=== PATIENT | female | born 1955 | race Two or more races ===

== ENCOUNTER 2023-12-21 05:20 | Day surgery (SDC) | payer OTHER ==
[~2023-12-21 05:20] MED LIST: AMLODIPINE-OLM1 EAC3; GLUMETZA1000 MG; JARDIANCE25 MG; LOSARTAN POTASS50 MG; MONTELUKAST SOD10 MG; SYNTHROID100 MCG
[2023-12-21] MEDS ORDERED: CEFAZOLIN SODIUM 1,000 MG VIAL ONE (06:37)
[2023-12-21] MEDS ORDERED: LIDOCAINE HCL 1%/EPINEPHRINE 20ML VIAL IJ ONE ×2 (07:24→08:23)
[2023-12-21] MEDS ORDERED: POVIDONE-IODINE 118 ML BOTT TOP ONE (07:24)
[2023-12-21] MEDS ORDERED: BUPIVACAINE HCL/MPF 0.5% 30ML VIAL ONE (07:24)
[2023-12-21] MEDS ORDERED: BUPIVACAINE HCL/Mpf 0.5% 10ML VIAL ONE (08:22)
[2023-12-21] MEDS ORDERED: CEFAZOLIN SODIUM 1,000 MG VIAL IV ONE (08:30)
== END 2023-12-21 10:55 | disposition home or self-care (01) ==
LOC: CIR.AMB 05:20
PROVIDERS: ATTEND Colon & Rectal Surgery
DX: R15.9 Full incontinence of feces (principal); I10 Essential (primary) hypertension; E11.9 Type 2 diabetes mellitus without complications; J45.909 Unspecified asthma, uncomplicated; K76.0 Fatty (change of) liver, not elsewhere classified
CPT/HCPCS: 64581; 95972; C1778

== ENCOUNTER 2024-01-04 05:28 | Day surgery (SDC) | payer OTHER ==
[2024-01-04] MEDS ORDERED: BUPIVACAINE HCL 30 ML VIAL IJ SCH (07:45)
[2024-01-04] MEDS ORDERED: CEFAZOLIN SODIUM 1,000 MG VIAL IV SCH (07:45)
[2024-01-04] MEDS ORDERED: LIDOCAINE HCL 1%/EPINEPHRINE 20ML VIAL IJ SCH (07:45)
== END 2024-01-04 10:55 | disposition home or self-care (01) ==
LOC: CIR.AMB 05:28
PROVIDERS: ATTEND Colon & Rectal Surgery
DX: R15.9 Full incontinence of feces (principal); E11.9 Type 2 diabetes mellitus without complications; E03.9 Hypothyroidism, unspecified; I10 Essential (primary) hypertension
CPT/HCPCS: 64590; 95972; C1767